=== PATIENT | female | born 1995 ===

== ENCOUNTER 2017-04-29 15:55 | Observation (INO) ==
--- NOTE | 2017-04-29 16:42 | Emergency Department Note ---
Arrival - Arrival Chief Complaint: Abdominal / Flank Pain Stated Complaint: right upper quad pain ED Nursing Triage Note: Pt is a transfer from [facility] w/ abnormal CT of abdomen. Pt reports RUQ pain that started last night. Denies any n/v/d. No PMH noted. Mode of Arrival: Stretcher Limitations: No Limitations Source: Patient, EMS, RN Notes Reviewed Time Seen by Provider: 04/29/17 16:30 - History of Present Illness HPI Narrative: The patient complains of right upper quadrant pain since yesterday evening. She cannot describe it but stated it has been constant with no exacerbating or relieving factors. She denies any nausea, vomiting, diarrhea, constipation or anorexia. Bowel movements have been normal. She last ate this morning. She denies any fever, dysuria or other symptoms. She has not had similar symptoms in the past. She is currently on her menstrual period. The patient was seen earlier at [facility]. A workup was done which was essentially negative except for a CT of the abdomen which showed mild fat stranding in the right upper quadrant adjacent to the falciform ligament, possibly representing an area of omental inflammation/infarction. She was transferred here for further evaluation. Date of Last Menstrual Period: t-1 Home Medications: Home Medications Medication Instructions Recorded Confirmed Type No Known Home Medications [No 04/29/17 04/29/17 History Known Home Medications] Review of System - Review of System 12 point system: reviewed and no additional remarkable complaints except as stated - Review of System Constitutional: Absent: fever Head/Ears/Nose/Throat: Absent: nasal drainage, sore throat Respiratory: Absent: cough Cardiovascular: Present: edema (Mild, bilateral feet). Absent: chest pain Gastrointestinal: Present: abdominal pain. Absent: nausea, vomiting, diarrhea, constipation, hematemesis, melena, hematochezia Genitourinary female: Absent: abnormal menses, dysuria, hematuria Musculoskeletal: Absent: back pain Medical,Surgical,& Family Hx - Medical History Medical History: noncontributory - Surgical History Reproductive Surgeries: Surgical HX of;: Section - Family History Family History: noncontributory - Social History Smoking Status: Smoker, status unknown Frequency of Alcohol Use: None Type of Drug Use: None Exam Physical Examination: GENERAL: Alert. No acute distress. HEENT: Normocephalic and atraumatic. There is no nasal drainage. No pharyngeal erythema or exudate. NECK: Normal inspection. Supple. No lymphadenopathy or meningismus. LUNGS: No respiratory distress. Clear to auscultation bilaterally, no wheezes, rales or rhonchi. HEART: Regular rate and rhythm. ABDOMEN: Obese, soft, nondistended with normal bowel sounds. Mild right upper quadrant tenderness along the lower rib margin. No guarding or rebound. BACK: Normal inspection. SKIN: Color normal. Warm and dry. EXTREMITIES: Nontender. Normal range of motion. No pedal edema. NEUROLOGICAL/PSYCHIATRIC: Alert and oriented -3 with normal mood and affect. Cranial nerves normal. No motor or sensory deficit. Vital Signs: Vital Signs Temperature 98.2 F 04/29/17 16:00 Pulse Rate 63 04/29/17 16:00 Respiratory Rate 16 04/29/17 16:00 Blood Pressure 129/82 04/29/17 16:00 O2 Sat by Pulse Oximetry 100 04/29/17 16:00 Course - Reevaluation(s) Reevaluation #1: Patient is stable in the ER here and having only very mild pain. Exam is fairly benign. She has only mild right upper quadrant tenderness without guarding or rebound. I have discussed the patient with Dr. Cameron and will admit him overnight for observation and pain medication as needed. Time: 16:53 Results - Labs Lab Results: I have reviewed the patients labs Labs: Labs were done at [facility]: White blood cell count 7.8 Hemoglobin 12.1 Hematocrit 35.6 Platelets 239 Sodium 141 Potassium 3.5 Chloride 105 CO2 26.5 BUN 12 Creatinine 0.9 Total bilirubin 0.6 Alkaline phosphatase 63 SGOT 35 SGPT 55 Urinalysis: Specific gravity 1.025 Blood 3+ Ketones negative Protein trace - Impressions CT of the abdomen showed mild fat stranding in the right upper quadrant adjacent to the falciform ligament, possibly representing an area of omental inflammation/infarction. Disposition Clinical Impression: Right upper quadrant abdominal pain Case discussed with: patient Disposition: Still a Patient Condition: Stable Time of Disposition: 16:54
[2017-04-29] MEDS ORDERED: ACETAMINOPHEN 325 MG TABLET PO PRN (19:06)
[2017-04-29] MEDS ORDERED: KETOROLAC 30 MG/1 ML VIAL IV PRN (19:06)
[2017-04-29] MEDS ORDERED: ONDANSETRON 4 MG/2 ML VIAL IV PRN (19:06)
--- NOTE | 2017-04-29 20:02 | Ultrasound Report ---
Right upper quadrant ultrasound. Indication: Right upper quadrant pain. The liver is enlarged with a length of 20 cm. There is mild to moderate fatty infiltration of the liver. No focal liver lesions are seen. There is no gallstone identified. There is no gallbladder wall thickening or fluid around the gallbladder. The patient was tender over the gallbladder. The common duct measures 3 mm. Visualized portions of the pancreas are normal. Portions of the pancreas are secured by bowel gas. The right kidney has a normal appearance. Impression: The liver is enlarged and there is fatty infiltration. No sonographic evidence of gallbladder abnormality is seen, but the patient was tender over the gallbladder with compression. The Ultrasound images were captured and stored. PROCEDURE INTERPRETED AT [facility] Final Report Signed by: Dr. Valencia Solomon
[2017-04-29] MEDS: SODIUM CHLORIDE 0.45% 1,000 ML IV SCH (23:10)
[2017-04-30 06:28] LABS: Basophils % 0.5 % (0.0-0.8); Eosinophils # 0.4 10*3/uL (0.0-0.87); Hematocrit 31.6 VOL% (35.7-47.0); Hemoglobin 11.2 GM/DL (12.0-16.0); Immature Granulocytes % 0.1 %; Immature Granulocytes Absolute 0.01 #; Lymphocytes # 2.5 10*3/uL (1.4-4.0); Lymphocytes % 31.3 % (21.3-54.2); Mean Corpuscular HGB Conc 35.4 GM/DL (32-36); Mean Corpuscular Hemoglobin 34 PG (27-34); Mean Corpuscular Volume 95.8 FL (87-102); Monocytes # 0.7 10*3/uL (0.11-0.8); Monocytes % 8.1 % (1.7-12.7); Neutrophils # 4.4 10*3/uL (1.4-7.4); Platelet Count 194 T/CUMM (130-400); Red Cell Distribution Width 12.4 % (9.3-17.3)
[2017-04-30 07:00] LABS: Albumin 2.7 G/DL (3.4-5.0); Bilirubin,Total 0.8 MG/DL (0.2-1.0); Calcium 8.4 MG/DL (8.5-10.1); Osmolality,Calculated 274.5 MOS/KG (273-304); Potassium 3.6 MMOL/L (3.5-5.1); Total Protein 6.6 G/DL (6.4-8.3)
[2017-04-30] MEDS: SODIUM CHLORIDE 0.45% 1,000 ML IV SCH ×2 (07:14→07:45)
[2017-04-30] MEDS ORDERED: PANTOPRAZOLE 40 MG TABLET PO SCH (09:00)
--- NOTE | 2017-04-30 09:13 | General Surg History&Physical ---
Assessment and Plan (1) Right upper quadrant abdominal pain Status: Acute Assessment and plan: Impression: Right upper quadrant abdominal pain secondary to inflammation, suspect this is self-limiting illness Plan: Patient had Toradol ordered but has not been given. I think the Toradol is probably the best anti-inflammatory for this problem. Patient wants to go home. Will discharge home on 4 days of Toradol and she will continue ibuprofen on an as-needed basis after that. She will follow-up with me if her pain does not improve over the next 2-3 weeks, if her pain worsens at any time, or if she begins to have nausea vomiting fever chills shortness of breath chest pain or any other symptom. Current Visit: Yes History of Present Illness Chief complaint: Right upper quadrant abdominal pain History of present illness: Ms. Lisa is a 21 year old female was transferred to emergency room with right upper quadrant abdominal pain and a CT scan that showed some inflammation in the right upper quadrant. Since admission her pain is stable. Is worsened when she is moving around. Also worse when she sleeps on her stomach. Whenever she is not moving it does not seem to bother her. She has had no fever nausea or vomiting. She has been tolerating a diet. Her bowel movements have been normal. She reports no chest pain or any other symptoms. She has no shortness of breath. CT scan at outside facility revealed inflammation near the falciform consistent with omental infarction or epiploic appendage iritis. Gallbladder ultrasound was normal. Home Medications Medication Instructions Recorded Confirmed Type No Known Home Medications [No 04/29/17 04/29/17 History Known Home Medications] Allergies Allergy/AdvReac Type Severity Reaction Status Date / Time No Known Allergies Allergy Verified 04/29/17 16:53 Medical,Surgical,& Family Hx - Medical History Medical History: noncontributory - Surgical History Reproductive Surgeries: Surgical HX of;: Section - Family History Family History: Reports;: Family Hypertension (mother) - Social History Smoking Status: Smoker, status unknown Frequency of Alcohol Use: None Type of Drug Use: None Exam - Constitutional Vitals: Period Temp Pulse Resp BP Sys/Fermin Pulse Ox Last 24 Hr 96.9 F-98.2 F 63-82 16-20 112-158/58-98 95-100 General appearance: no acute distress - Head Head exam: Present: normocephalic - Neck Neck exam: Present: normal inspection - Respiratory Respiratory exam: Present: clear to auscultation bilaterally - Cardiovascular Cardiovascular exam: Present: RRR - GI/Abdominal GI/Abdominal exam: Present: soft (Minimally tender in the right upper quadrant, nondistended, obese no peritoneal signs and no tenderness anywhere else in the abdomen.) - Extremities Exam Extremities exam: Present: normal inspection - Back Exam Back exam: Present: normal inspection - Neurological Exam Neurological exam: Present: alert, oriented X3 Speech: Present: normal - Skin Skin exam: Present: normal color 12 point system: reviewed and no additional remarkable complaints except as stated Results - Labs CBC & BMP: 04/30/17 06:02 04/30/17 06:02 Lab Results: I have reviewed the past 24 hour labs
--- NOTE | 2017-04-30 09:16 | Discharge Summary ---
Hospital Course - Hospital Course Hospital Course: See H&P Diagnosis - Discharge Diagnosis (1) Right upper quadrant abdominal pain Status: Acute Discharge Plan - Discharge Medications New Ketorolac Inj [Toradol Inj] 10 mg PO Q6H PRN #16 vial PRN Reason: Pain Moderate (4-7) - Follow Up or Referral - Forms/Instructions Exam - Constitutional Vitals: Period Temp Pulse Resp BP Sys/Fermin Pulse Ox Last 24 Hr 96.9 F-98.2 F 63-82 16-20 112-158/58-98 95-100 Discharge Results Labs on day of discharge: Labs from last 24 hours 04/30/17 04/30/17 06:02 06:02 WBC 8.0 RBC 3.30 L Hgb 11.2 L Hct 31.6 L MCV 95.8 MCH 34 MCHC 35.4 RDW 12.4 Plt Count 194 MPV 10.0 Neut % (Auto) 55.0 Lymph % (Auto) 31.3 Bracken % (Auto) 8.1 Eos % (Auto) 5.0 Baso % (Auto) 0.5 Neut # (Auto) 4.4 Lymph # (Auto) 2.5 Bracken # (Auto) 0.7 Eos # (Auto) 0.4 Baso # (Auto) 0.0 Immature Gran % 0.1 Nucleated RBC % 0.0 Immature Gran # 0.01 Nucleated RBCs # 0.00 Immature Plt Fraction 0.0 Sodium 139 Potassium 3.6 Chloride 106 Carbon Dioxide 26 Anion Gap 10.6 BUN 9 Creatinine 0.70 GFR Calculation 142 BUN/Creatinine Ratio 12.00 Glucose 81 Calculated Osmolality 274.5 Calcium 8.4 L Total Bilirubin 0.80 AST 32 ALT 46 Alkaline Phosphatase 53 Total Protein 6.6 Albumin 2.7 L Globulin 3.9 H Albumin/Globulin Ratio 0.6 L DS: Provider Date of admission: 04/29/17 16:54 Primary care physician: Garrett Rodgers MD Attending physician on admission: Raj Rose MD Consults: 04/29/17 19:29 Consult to Pastoral Services [CONS] Routine Comment: Pastoral Screen: Request Last Code Striper Visit Pastoral Screen Source of Request: Patient Discharging clinician: Raj Rose MD
[2017-04-30 11:08] VITALS: BP 117/60
== END 2017-04-30 13:10 | disposition home or self-care (01) ==
LOC: EDUNIT# → EDBD → N.EDINP 15:55 → N.ED 15:55 → N.EDINP 18:42 → N.3E 18:51
PROVIDERS: ADMIT Surgery; ATTEND Surgery

== ENCOUNTER 2021-10-11 10:07 | Inpatient (IN) ==
[2021-10-11] MEDS ORDERED: ceFAZolin 3,000 MG in SYRINGE 1 EACH IV ONE (10:54)
[2021-10-11] MEDS ORDERED: AMPICILLIN INJ 2,000 MG in SODIUM CHLORIDE 0.9% 100 ML IV SCH (11:00)
[2021-10-11 11:22] LABS: Basophils % 0.4 % (0.0-0.8); Eosinophils # 0.1 10*3/uL (0.0-0.87); Eosinophils % 1.4 % (0.00-10.9); Hematocrit 32.8 VOL% (35.7-47.0); Immature Granulocytes % 0.5 %; Immature Granulocytes Absolute 0.04 #; Lymphocytes # 1.7 10*3/uL (1.4-4.0); Lymphocytes % 20.1 % (21.3-54.2); Mean Corpuscular HGB Conc 33.5 GM/DL (32-36); Mean Corpuscular Volume 94.3 FL (87-102); Monocytes % 7.3 % (1.7-12.7); Neutrophils % 70.3 % (38.7-73.9); Platelet Count 174 T/CUMM (130-400); Red Blood Count 3.48 MC/CUMM (3.8-5.5); Red Cell Distribution Width 13.8 % (9.3-17.3); White Blood Count 8.5 T/CUMM (4-12)
[2021-10-11 11:37] LABS: Bilirubin,Total 0.5 MG/DL (0.20-1.00); Calcium 8.7 MG/DL (8.5-10.1); Osmolality,Calculated 274.5 MOS/KG (273-304); Potassium 3.9 MMOL/L (3.5-5.1)
[2021-10-11] MEDS: LACTATED RINGERS 1,000 ML IV SCH ×2 (11:39→15:16)
[2021-10-11] MEDS ORDERED: OXYTOCIN 10 UNIT/ML VIAL IM ONE (12:16)
[2021-10-11] MEDS ORDERED: OXYTOCIN/LR 30 UNIT/1,000 ML BAG IV ONE (12:16)
[2021-10-11] MEDS ORDERED: CITRIC ACID/SODIUM CITRATE 30 ML UDCUP PO ONE (13:00)
[2021-10-11] MEDS ORDERED: FAMOTIDINE 20 MG/2 ML VIAL IV ONE (13:00)
[2021-10-11] MEDS ORDERED: miSOPROStoL 200 MCG TABLET ONE (13:06)
[2021-10-11] MEDS ORDERED: TRANEXAMIC ACID 1,000 MG/10 ML VIAL ONE (13:06)
[2021-10-11] MEDS ORDERED: CARBOPROST TROMETHAMINE 250 MCG/ML AMP IM ONE (13:07)
[2021-10-11] MEDS ORDERED: METHYLERGONOVINE 0.2 MG/1 ML AMP ONE (13:07)
[2021-10-11] MEDS ORDERED: OXYTOCIN/LR 20 UNIT/1,000 ML BAG IV ONE ×2 (13:07→16:42)
[2021-10-11] MEDS ORDERED: SODIUM CHLORIDE 0.9% 0 ML IV ONE (13:07)
[2021-10-11] MEDS ORDERED: BUPIVACAINE MPF 0.5% 30 ML VIAL ONE (13:28)
[2021-10-11] MEDS ORDERED: PHENYLEPHRINE 1 MG/10 ML SYRINGE IV ONE (13:28)
[2021-10-11] MEDS ORDERED: ONDANSETRON 4 MG/2 ML VIAL ONE (13:28)
[2021-10-11 16:21] LABS: Cord Arterial Blood HCO3 20.1 MMOL/L
[2021-10-11 16:23] LABS: Cord Venous Blood HCO3 23.9 MMOL/L; Cord Venous Blood PCO2 50.2 MMHG; Cord Venous Blood PO2 19.3 MMHG
[2021-10-11] MEDS ORDERED: KETOROLAC 30 MG/1 ML VIAL ONE (16:29)
[2021-10-11] MEDS ORDERED: ACETAMINOPHEN INJ 1,000 MG/100 ML VIAL IV ONE (16:29)
[2021-10-11] MEDS ORDERED: SIMETHICONE CHEW 80 MG TABLET PO PRN (16:42)
[2021-10-11] MEDS ORDERED: ONDANSETRON 4 MG/2 ML VIAL IV PRN (16:42)
[2021-10-11] MEDS ORDERED: ACETAMINOPHEN 325 MG TABLET PO PRN (16:42)
[2021-10-11] MEDS ORDERED: GLUCAGON 1 MG VIAL IM PRN (16:42)
[2021-10-11] MEDS ORDERED: IBUPROFEN 800 MG TABLET PO PRN (16:42)
[2021-10-11] MEDS ORDERED: MAGNESIUM HYDROXIDE SUSP 30 ML UDCUP PO PRN (16:42)
[2021-10-11] MEDS ORDERED: RHO(D) IMMUNE GLOBULIN 300 MCG SYRINGE IM ONE (16:42)
[2021-10-11] MEDS ORDERED: DEXTROSE 10% 250 ML BAG IV PRN (16:55)
[2021-10-11 17:04] LABS: Mucus,Urine Occasional /LPF (Occasional); RBC,Urine 1 /HPF (0-4); Squamous Epithelial Cell,Urine Occasional /HPF (0-10); Urine Appearance Clear (Clear); Urine Color Yellow (Yellow); Urine Specific Gravity 1.025 (1.001-1.035)
[2021-10-11 17:05] LABS: Bilirubin,Urine Negative (Negative); Blood, Urine Negative (Negative); Glucose,Urine (UA) Negative (Negative); Ketones,Urine Negative (Negative); Nitrite,Urine Negative (Negative); Protein,Urine Negative; Urine Urobilinogen 0.2 EU/DL (<2.0)
[2021-10-11] MEDS ORDERED: NIFEdipine 10 MG CAPSULE PO ONE ×2 (21:35→22:38)
[2021-10-11] MEDS: KETOROLAC 30 MG/1 ML VIAL IV SCH (23:42)
[2021-10-11] MEDS: ACETAMINOPHEN 500 MG TABLET PO SCH (23:42)
[2021-10-11] MEDS: INSULIN REGULAR 100 UNIT/ML SUBCUT SCH (23:50)
[2021-10-12] MEDS: DOCUSATE SODIUM 100 MG CAPSULE PO SCH ×3 (00:18→20:59)
[2021-10-12] MEDS: LACTATED RINGERS 1,000 ML IV SCH ×2 (03:28→07:00)
[2021-10-12 06:18] LABS: Basophils % 0.5 % (0.0-0.8); Eosinophils # 0.2 10*3/uL (0.0-0.87); Eosinophils % 2.2 % (0.00-10.9); Hematocrit 30.8 VOL% (35.7-47.0); Hemoglobin 10.3 GM/DL (12.0-16.0); Immature Granulocytes % 0.6 %; Immature Granulocytes Absolute 0.05 #; Lymphocytes # 2.2 10*3/uL (1.4-4.0); Lymphocytes % 26.8 % (21.3-54.2); Mean Corpuscular HGB Conc 33.4 GM/DL (32-36); Mean Corpuscular Volume 95.7 FL (87-102); Mean Platelet Volume 10.4 FL (9.6-12.0); Monocytes % 8.6 % (1.7-12.7); Neutrophils % 61.3 % (38.7-73.9); Platelet Count 155 T/CUMM (130-400); Red Blood Count 3.22 MC/CUMM (3.8-5.5)
[2021-10-12] MEDS: INSULIN REGULAR 100 UNIT/ML SUBCUT SCH ×4 (06:26→23:43)
[2021-10-12] MEDS: ACETAMINOPHEN 500 MG TABLET PO SCH ×2 (07:42→14:45)
[2021-10-12] MEDS: KETOROLAC 30 MG/1 ML VIAL IV SCH ×2 (07:43→14:45)
[2021-10-12] MEDS: MULTIVITAMIN (PRENATAL) TABLET PO SCH (12:00)
[2021-10-12] MEDS: METOCLOPRAMIDE 10 MG TABLET PO SCH (18:23)
[2021-10-13] MEDS: METOCLOPRAMIDE 10 MG TABLET PO SCH ×3 (02:03→10:26)
[2021-10-13] MEDS: INSULIN REGULAR 100 UNIT/ML SUBCUT SCH ×3 (05:56→13:01)
[2021-10-13] MEDS ORDERED: metFORMIN 850 MG TABLET PO SCH (08:00)
[2021-10-13] MEDS: MULTIVITAMIN (PRENATAL) TABLET PO SCH (08:56)
[2021-10-13] MEDS: DOCUSATE SODIUM 100 MG CAPSULE PO SCH (08:56)
[2021-10-13 13:10] VITALS: BP 153/80
[2021-10-13] MEDS ORDERED: INFLUENZA VIRUS VACCINE 0.5 ML SYRINGE IM ONE (13:10)
[2021-10-13] MEDS ORDERED: DIPH/TET/ACEL PERT BOOSTER VACCINE 0.5 ML VIAL IM ONE (13:10)
== END 2021-10-13 14:15 | disposition home or self-care (01) | DRG 540 ==
LOC: N.LD 10:07 → N.OB 10-12 12:48
PROVIDERS: ADMIT Obstetrics & Gynecology; ATTEND Obstetrics & Gynecology
PROC: LDCSECT (ICD-10-PCS; 2021-10-11 15:00)